=== PATIENT | female | born 1985 | race Caucasian/White ===

== ENCOUNTER 2016-11-14 17:28 | Inpatient (IN) ==
[2016-11-14] MEDS ORDERED: SALINE FLUSH 10ml SYRINGE IVF PRN (17:44)
[2016-11-14] MEDS ORDERED: ONDANSETRON 4 MG/2 ML INJECTION IVP ONE (17:45)
--- NOTE | 2016-11-14 17:49 | Emergency Department Report ---
Nausea/Vomiting/Diarrhea HPI - General Chief complaint: Nausea/Vomiting/Diarrhea Stated complaint: Not able to keep anything down Time Seen by Provider: 11/14/16 17:40 Source: patient Mode of arrival: ambulatory Limitations: no limitations - History of Present Illness HPI Narrative: Her 2 weeks ago. Since then she has been having trouble with nausea/vomiting. She is type 1 diabetic and does wear an insulin pump. She has vomited multiple times today. Is having some chest pain as well as generalized abdominal pain. Denies any diarrhea. Is having chills but no fever. Was evaluated in ER in [place] 2 days ago and sent home. Was also evaluated by her PCP and was given medications. MD complaint: nausea, vomiting Onset (ago): week(s) (2) Associated Abdominal Pain: Yes Location of pain: diffuse Severity: moderate Quality: cramping Consistency: constant Relieving factors: none Exacerbating factors: none Associated symptoms: chest pain, fever/chills (chills), loss of appetite, malaise, nausea/vomiting - Related Data Home Medications Medication Instructions Recorded Confirmed Furosemide [Lasix] 40 mg PO DAILY 11/14/16 11/14/16 Insulin Lispro [HumaLOG] 100 unit SQ PRN PRN 11/14/16 11/14/16 Lisinopril [Prinivil] 10 mg PO DAILY 11/14/16 11/14/16 Nature-Throid 1 tab PO DAILY 11/14/16 11/14/16 Promethazine HCl [Phenergan] 25 mg RECTALLY DAILY PRN 11/14/16 11/14/16 Promethazine Tab [Phenergan Tab] 25 mg PO Q8H PRN 11/14/16 11/14/16 Allergies Allergy/AdvReac Type Severity Reaction Status Date / Time clarithromycin [From Biaxin] Allergy Verified 11/14/16 17:48 latex Allergy Verified 11/14/16 17:48 Penicillins Allergy Verified 11/14/16 17:48 sulfamethoxazole Allergy Verified 11/14/16 17:48 [From Bactrim] trimethoprim [From Bactrim] Allergy Verified 11/14/16 17:48 Review of Systems Constitutional: Reports: chills. Denies: fever, weakness ENT: Denies: ear pain, throat pain, congestion Cardiovascular: Denies: chest pain, palpitations, dyspnea on exertion Respiratory: Denies: cough, dyspnea, wheezes Gastrointestinal: Reports: nausea, vomiting. Denies: abdominal pain, diarrhea Integumentary: Denies: rash Neurological: Denies: headache, weakness, numbness, paresthesias PFSH Patient Stated Medical History Other HEENT Yes: blindness R eye Congestive Heart Failure Yes Hypertension Yes Diabetes Mellitus Type 1 Yes Other Yes: possible lupus Type 1 diabetes Hashimotos thyroiditis - Social History Smoking status: Never smoker Substance use type: does not use Alcohol intake frequency: does not drink Physical Exam - Limitations Limitations: no limitations - General General appearance: alert, in no apparent distress - Normal Exams: ENMT:: No facial trauma, nasal exudates, pharyngeal erythema, or exudates are noted Neck:: Full range of motion, without adenopathy, JVD, bruits or thyromegaly Chest/Respirations:: Clear all menjivar, with good airflow, and symmetry bilaterally Integumentary:: No rashes, hives, or bruising noted Neurological:: Patient is alert, and oriented Psychiatric:: Patient exhibits, appropriate attention, emotion and affect - Cardiovascular Cardiovascular exam: Present: normal rhythm, tachycardia, normal heart sounds. Absent: regular rate, systolic murmur, diastolic murmur, rubs, gallop - Abdominal Exam Abdominal exam: Present: soft, tenderness (diffuse TTP, no guarding), normal bowel sounds. Absent: distention, guarding, rebound Course Vital Signs Temperature 99.3 F 11/14/16 17:30 Pulse Rate 103 H 11/14/16 17:30 Respiratory Rate 16 11/14/16 17:30 Blood Pressure 180/81 H 11/14/16 17:30 Pulse Oximetry 97 11/14/16 17:30 Temperature 99.6 F 11/14/16 21:44 Pulse Rate 94 11/14/16 21:44 Respiratory Rate 16 11/14/16 21:44 Blood Pressure 162/74 H 11/14/16 21:44 Pulse Oximetry 96 11/14/16 21:44 Nausea/Vomiting/Diarrhea - [facility] Narrative Medical decision making narrative: Patient has had one episode of vomiting while in ER. States that nausea is coming back. WBC is elevated at 17. CT scan shows possible infarct, trauma, or infection. Discussed findings with Dr Prather. He does recommend holding off on repeat CT until overread of this one in the morning. Would recommend having the overread forwarded to her PCP and they can set up outpatient scan. She states that she has no way to get back to [place] as she is staying with her mom so will no be able to follow up with the PCP. Did talk with Dr Romero. He will accept patient for admission given her elevated WBC, CT findings, vomiting, diabetes, and no close follow up. - Differential Diagnosis Likely: food poisoning, gastroenteritis, dehydration (DKA, AMI) - Lab Data Attestation: I reviewed the patient's lab results. Result diagrams: 11/14/16 18:01 11/14/16 18:01 Lab Results 11/14/16 11/14/16 11/14/16 Range/Units 18:01 18:01 18:02 WBC 17.2 H (4.5-11.0) T/MM3 RBC 4.84 (4.00-5.20) M/MM3 Hgb 14.0 (12-16) GM/DL Hct 43.4 (36-46) % MCV 89.7 (80-100) UM3 MCH 28.9 (26-34) UUG MCHC 32.3 (31-37) GM/DL RDW Std Deviation 41.6 (36.9-50.2) FL Plt Count 442 H (130-400) T/MM3 MPV 12.3 (9.4-12.4) UM3 Immature Gran % (Auto) Not performed Neut % (Auto) Not performed Lymph % (Auto) Not performed [place] % (Auto) Not performed Eos % (Auto) Not performed Baso % (Auto) Not performed Neut # Not performed Lymph # Not performed [place] # Not performed Baso # Not performed Abs Immat Gran (auto) Not performed Neutrophils % (Manual) 77.0 H (33-66) % Lymphocytes % (Manual) 16.0 L (23-45) % Monocytes % (Manual) 6.0 (0-9.0) % Basophils % (Manual) 1.0 (0-2) % Neutrophils # (Manual) 13.2 H (1.8-7.7) T/MM3 Lymphocytes # (Manual) 2.8 (1-4.8) T/MM3 Monocytes # (Manual) 1.0 H (0-0.8) T/MM3 Basophils # (Manual) 0.2 (0-0.2) T/MM3 RBC Morph Comment Normal Turbidity < 20 (0-20) Sodium 143 (134-144) MEQ/L Potassium 3.2 L (3.6-5) MEQ/L Chloride 97 L (98-107) MEQ/L Carbon Dioxide 33 H (22-30) MEQ/L Anion Gap 13 (5-15) MEQ/L BUN 14.0 (7-17) MG/DL Creatinine 0.8 (0.7-1.2) MG/DL GFR Calculation 84 BUN/Creatinine Ratio 18 (6-26) RATIO Glucose 302 H (65-110) MG/DL Glucometer 276 (65-110) mg/dL Calculated Osmolality 287 H (261-280) MOSM/KG Calcium 9.0 (8.4-10.2) MG/DL Icterus Index < 2 (0-7) Troponin I < 0.012 (0-0.12) ng/ml Specimen Hemolysis < 15 (0-25) Ur Collection Type Urine Color (YELLOW) Urine Clarity Urine pH (5.0-8.0) Ur Specific [place] (1.015-1.025) Urine Protein (NEGATIVE) Urine Glucose (UA) (NEGATIVE) Urine Ketones (NEGATIVE) Urine Occult Blood (NEGATIVE) Urine Nitrate (NEGATIVE) Urine Bilirubin (NEGATIVE) Urine Urobilinogen (NORMAL) EU/DL Ur Leukocyte Esterase (NEGATIVE) Urine RBC (0-3) /HPF Urine WBC (0-5) /HPF Ur Squamous Epith Cells Urine Bacteria (NEGATIVE) Ur Culture Indicated? Urine Test (Negative) 11/14/16 11/14/16 11/14/16 Range/Units 19:37 19:56 20:43 WBC (4.5-11.0) T/MM3 RBC (4.00-5.20) M/MM3 Hgb (12-16) GM/DL Hct (36-46) % MCV (80-100) UM3 MCH (26-34) UUG MCHC (31-37) GM/DL RDW Std Deviation (36.9-50.2) FL Plt Count (130-400) T/MM3 MPV (9.4-12.4) UM3 Immature Gran % (Auto) Neut % (Auto) Lymph % (Auto) [place] % (Auto) Eos % (Auto) Baso % (Auto) Neut # Lymph # [place] # Baso # Abs Immat Gran (auto) Neutrophils % (Manual) (33-66) % Lymphocytes % (Manual) (23-45) % Monocytes % (Manual) (0-9.0) % Basophils % (Manual) (0-2) % Neutrophils # (Manual) (1.8-7.7) T/MM3 Lymphocytes # (Manual) (1-4.8) T/MM3 Monocytes # (Manual) (0-0.8) T/MM3 Basophils # (Manual) (0-0.2) T/MM3 RBC Morph Comment Turbidity (0-20) Sodium (134-144) MEQ/L Potassium (3.6-5) MEQ/L Chloride (98-107) MEQ/L Carbon Dioxide (22-30) MEQ/L Anion Gap (5-15) MEQ/L BUN (7-17) MG/DL Creatinine (0.7-1.2) MG/DL GFR Calculation BUN/Creatinine Ratio (6-26) RATIO Glucose (65-110) MG/DL Glucometer 161 (65-110) mg/dL Calculated Osmolality (261-280) MOSM/KG Calcium (8.4-10.2) MG/DL Icterus Index (0-7) Troponin I (0-0.12) ng/ml Specimen Hemolysis (0-25) Ur Collection Type Urine, clean catch Urine Color Yellow (YELLOW) Urine Clarity Clear Urine pH 8.5 A (5.0-8.0) Ur Specific [place] 1.025 (1.015-1.025) Urine Protein 3+ A (NEGATIVE) Urine Glucose (UA) 3+ A (NEGATIVE) Urine Ketones 1+ A (NEGATIVE) Urine Occult Blood 2+ A (NEGATIVE) Urine Nitrate Negative (NEGATIVE) Urine Bilirubin Negative (NEGATIVE) Urine Urobilinogen 0.2 (NORMAL) EU/DL Ur Leukocyte Esterase Negative (NEGATIVE) Urine RBC 1-3 (0-3) /HPF Urine WBC 0-1 (0-5) /HPF Ur Squamous Epith Cells 0-5 Urine Bacteria None seen (NEGATIVE) Ur Culture Indicated? Cult not indicated Urine Test Negative (Negative) - Radiology Data Attestation: I reviewed the patient's radiology results. patchy hypoenhancement in the spleen which does not have the typical appearance of the differences in red/white pulp enhancement. Differential includes infarct , trauma, or infection. Recommend follow up CT scan of the abdomen with IV contrast, splenic protocol, with delayed images through the spleen, as clinically warrented. Disposition Clinical Impression: Nausea & vomiting Qualifiers: Vomiting type: unspecified Vomiting Intractability: non-intractable Qualified Code(s): R11.2 - Nausea with vomiting, unspecified Disposition: 02 To [facility] Condition: Stable Prescriptions: No Action Insulin Lispro [HumaLOG] 100 unit SQ PRN PRN PRN Reason: Prn Orders Lisinopril [Prinivil] 10 mg PO DAILY Promethazine HCl [Phenergan] 25 mg RECTALLY DAILY PRN PRN Reason: Nausea Nature-Throid 1 tab PO DAILY Furosemide [Lasix] 40 mg PO DAILY Promethazine Tab [Phenergan Tab] 25 mg PO Q8H PRN PRN Reason: Nausea Referrals: Vamshi Rosales MD [Family Provider] - Time of Disposition: 21:50 - Seen By: midlevel
[2016-11-14] MEDS: NS 1,000 ML IV SCH (18:02)
[2016-11-14] MEDS ORDERED: GI COCKTAIL 30 ML PO ONE (19:33)
[2016-11-14] MEDS ORDERED: IOHEXOL 300mg/ml 100ml INJECTION ONE (20:10)
[2016-11-14] MEDS ORDERED: SALINE FLUSH 10ml SYRINGE ONE (20:10)
[2016-11-14] MEDS ORDERED: NS 100 ML ONE (20:10)
[2016-11-14] MEDS ORDERED: FAMOTIDINE 20 MG TABLET PO ONE (20:58)
[2016-11-14] MEDS ORDERED: FAMOTIDINE 40 MG TABLET PO ONE (21:02)
[2016-11-14] MEDS ORDERED: PROCHLORPERAZINE 10 MG/2 ML VIAL IVP ONE (21:51)
[2016-11-14] MEDS ORDERED: PROMETHAZINE 25 MG TABLET PO PRN (21:55)
[2016-11-14] MEDS ORDERED: PROMETHAZINE 25 MG SUPPOSITORY PR PRN (21:55)
[2016-11-14] MEDS ORDERED: METOCLOPRAMIDE 10mg/2ml INJECTION IVP PRN (22:39)
[2016-11-14] MEDS ORDERED: LR 1,000 ML IV SCH (22:39)
[2016-11-14] MEDS ORDERED: ACETAMINOPHEN 325 MG TABLET PO PRN (22:39)
[2016-11-14] MEDS ORDERED: HYDROMORPHONE 2 MG/ML INJECTION IVP PRN (22:39)
[2016-11-14] MEDS ORDERED: INSULIN ASPART 100unit/ml INJECTION SQ PRN (22:39)
--- NOTE | 2016-11-14 23:26 | History & Physical Report ---
History of Present Illness Date: 11/14/16 Chief complaint: abd pain/chest pain and N/v HPI: very pleasant 31-year-old female presents to the emergency room with about 2 weeks worth of nausea, vomiting and chest and LUQ pain. she describes the pain as gradual onset with left upper quadrant burning type pain that radiates up to her chest and through to her back. she thinks is worse with inspiration, she did get some relief in the emergency room today with a gi cocktail though that was more from heartburn type pain and not necessarily the pain she's had. she was seen in the emergency room in [place] a couple weeks ago was provided symptomatic care and discharged with really no resolution or pain. had a CXR and some labs she says. she lives in [place] currently but because her unfortunately 2 weeks ago (i was told by the er that that was from a pulmonary embolism but i didn't discuss that with patient) so she is staying in [place] with her parents and part of her workup, ct abdomen shows some hypo-enhanced pattern in her spleen, including the differential diagnoses included a possible infarction, in discussion with surgery, the emergency room got the recommendation to wait for the over read in the morning before possibly repeating or doing other imaging. she has had some subjective fevers and chills and her temperature currently is 99.6. she has had nonbloody nonbilious emesis, she denies any diarrhea or black or bloody stools. she denies any dysuria she denies any cough productive of sputum. she currently denies any unilateral edema though she does have a history of congestive heart failure although she doesn't know what her ejection fraction is and she is never seen a vp respiratory. (She tells me she needs a referral to see CV but her Dr ?wouldn't give her one so she is looking for a new Dr) she denies any known history of dvt or clotting disorder, no family hx as such. 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[place]) Medications Home Medications Medication Instructions Recorded Confirmed Type Furosemide [Lasix] 40 mg PO DAILY 11/14/16 11/14/16 History Insulin Lispro [HumaLOG] 100 unit SQ PRN PRN 11/14/16 11/14/16 History Lisinopril [Prinivil] 10 mg PO DAILY 11/14/16 11/14/16 History Nature-Throid 1 tab PO DAILY 11/14/16 11/14/16 History Promethazine HCl [Phenergan] 25 mg RECTALLY DAILY PRN 11/14/16 11/14/16 History Promethazine Tab [Phenergan Tab] 25 mg PO Q8H PRN 11/14/16 11/14/16 History Allergies Allergy/AdvReac Type Severity Reaction Status Date / Time Penicillins Allergy Mild Hives Verified 11/14/16 23:04 clarithromycin [From Biaxin] Allergy Verified 11/14/16 17:48 latex Allergy Verified 11/14/16 17:48 sulfamethoxazole Allergy Verified 11/14/16 17:48 [From Bactrim] trimethoprim [From Bactrim] Allergy Verified 11/14/16 17:48 Exam Vital Signs: Temp Pulse Resp BP Pulse Ox 99.6 F 98 20 143/78 H 93 11/14/16 22:30 11/14/16 22:30 11/14/16 22:30 11/14/16 22:30 11/14/16 22:30 Height: 1.68 m Weight: 102.6 kg - Constitutional Present: no acute distress - Routine HEENT Exam Head: Present: normocephalic, atraumatic Eye: Present: EOMI, PERRL - Routine Respiratory Exam Present: CTA bilaterally. Absent: accessory muscle use, crackles - Routine Cardiovascular Exam Present: S1, S2, no murmur - Routine Abdominal Exam Present: soft, tenderness, non distended. Absent: rebound, rigid - Routine Extremities Exam Present: no edema - Routine Neurological Exam Present: alert, oriented X3, CN II-XII intact, moving all extremities, normal speech - Routine Psychiatric Exam Present: normal affect Results - Labs CBC & Chem 7: 11/14/16 18:01 11/14/16 18:01 - ECG Data Tracing #1 I reviewed this ECG and interpreted as documented below: diffuse ST wave inversion w/o depression, non specific - Imaging and Cardiology CT scan - abdomen Status: image reviewed by me Additional comments: reportedly with splenic hypodensities, formal interp pending, ?mass? Assessment and Plan (1) Splenic lesion Current visit: Yes Status: Acute nausea vomiting abdominal pain are probably related to this. we will give her a single dose of lovenox this evening. formal interpretation ct abdomen the morning, saturation 4 ct of the chest to rule out pulmonary embolism, perhaps to look for rule out other pathology. her slightly elevated temperature white blood cell count could be related to the infarct, it seems less likely this is an abscess etc. and i'm not giving antibiotics at this point we have drawn blood cultures. provide supportive care with iv opiates and anti-emetics. 11/14/16 23:36 (2) Congestive heart failure of unknown etiology Current visit: Yes Status: Acute 11/14/16 23:38 she didn't know really any details. we'll check an echocardiogram, see if we can assist her in getting a referral to a vp respiratory in [place] if needed, will be very much iv fluid, will turn down the rate to 50 cc an hour replace potassium. check a magnesium as well. (3) Diabetes mellitus type 1 Current visit: Yes Status: Acute 11/14/16 23:39 she currently has her insulin pump running, her last sugar was 128. nursing and i have agreed to allow her to use her insulin pump and manage this, she is probably due for an insulin pump site changed tomorrow. if her sugars become abnormally elevated or for whatever reason we need to stop her insulin pump and management manually will do so. (4) Grief reaction Current visit: Yes Status: Acute 11/14/16 23:40 with of her 2 weeks prior, will continue to monitor (5) Insulin pump in place Current visit: Yes Status: Acute (6) Abdominal pain, left upper quadrant Current visit: Yes Status: Acute (7) Heartburn Current visit: Yes Status: Acute 11/14/16 23:41 PPI and PRN heartburn meds Sepsis Assessment - Focused Exam Vital Signs Temp Pulse Resp BP Pulse Ox 11/14/16 22:30 99.6 F 98 20 143/78 H 93 11/14/16 22:21 99.6 F 98 20 162/74 H 93 11/14/16 21:44 99.6 F 94 16 162/74 H 96 11/14/16 20:40 96 16 165/73 H 96 11/14/16 19:43 98 16 177/78 H 97 11/14/16 18:30 95 180/82 H 99 11/14/16 18:15 99 16 169/73 H 97 11/14/16 17:30 99.3 F 103 H 16 180/81 H 97 Hospital Course Summary Disclaimer: The visit summary below is not to be considered part of the above Progress Note.
[2016-11-14] MEDS: HYDROCODONE/APAP 5mg/325mg TABLET PO PRN (23:41)
[2016-11-15] MEDS ORDERED: ENOXAPARIN 100 MG/ML INJECTION SQ ONE ×2 (00:29→23:53)
[2016-11-15] MEDS ORDERED: INSULIN PUMP MC SCH (00:30)
[2016-11-15] MEDS ORDERED: ZOLPIDEM 5 MG TABLET PO PRN (00:30)
[2016-11-15] MEDS: LR 1,000 ML IV SCH ×2 (00:47→17:00)
--- NOTE | 2016-11-15 07:57 | CT Scan Report ---
Indication: abdominal pain for two weeks PROCEDURE: CT abdomen pelvis w con: Encounter: Initial Comparison: None Technique: Axial CT images were performed through the abdomen and pelvis after the administration of intravenous contrast. Coronal and sagittal two-dimensional reformats. Automated Exposure Control and Iterative Reconstruction dose reducing techniques were utilized. Contrast: Omnipaque 300 99 mL Findings: The lung bases are clear. The liver, gallbladder, pancreas and adrenal glands are within normal limits. Kidneys are normal. There is abnormal peripheral wedge-shaped low attenuation in the superior and anterior aspect of the spleen. The splenic vein appears patent. Splenic artery is not well seen on this phase of contrast. No abdominal or pelvic adenopathy. Bladder is unremarkable. Uterus and ovaries appear normal. No free fluid. No evidence of a bowel obstruction. The appendix is normal. Bone windows show no acute findings. Impression: Splenic abnormality probably representing a splenic infarct. There is a preliminary report by [facility]. .
--- NOTE | 2016-11-15 07:57 | XRay Report ---
Indication: chest pain with nausea and vomiting for two weeks PROCEDURE: XR chest 1V: Encounter: Initial Comparison: None FINDINGS: The lungs are clear. There is no abnormal airspace opacity, pleural effusion or pneumothorax identified. The heart size, pulmonary vasculature and mediastinum are within normal limits. No significant skeletal abnormality is seen. IMPRESSION: No acute cardiopulmonary abnormality. .
[2016-11-15] MEDS ORDERED: POTASSIUM CHLORIDE 20 MEQ/15 ML ORAL LIQUID PO SCH (08:00)
--- NOTE | 2016-11-15 09:36 | Progress Note ---
Subjective: Pt reports she is feeling better this am as her abd pain is a bit improved and she is able to keep food down. Reports constant/chronic cp. Reports she has been told she has "fluid around the heart" and possibly CHF but has never seen a paperboard boxes estimator or had any work up done. No stress test done. 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 Objective Vital signs: Temp Pulse Resp BP Pulse Ox 97.6 F 78 16 140/69 H 95 11/15/16 09:10 11/15/16 09:10 11/15/16 09:10 11/15/16 09:10 11/15/16 09:10 Rhythm: Normal Sinus Rhythm Weight: 104.5 kg - Constitutional Present: no acute distress, well nourished - Routine HEENT Exam Head: Present: atraumatic Eye: Present: EOMI ENT: Present: mucous membranes moist - Routine Respiratory Exam Present: CTA bilaterally. Absent: wheezes - Routine Cardiovascular Exam Present: RRR, no murmur - Routine Abdominal Exam Present: soft, tenderness, non distended Comments: mild luq tenderness - Routine Extremities Exam Absent: cyanosis, clubbing, edema - Routine Skin Exam Present: intact, dry, warm - Routine Neurological Exam Present: alert, oriented X3 Results - Labs CBC & Chem 7: 11/15/16 02:18 11/15/16 02:18 Assessment and Plan (1) Splenic lesion Current visit: Yes Status: Acute nausea vomiting abdominal pain are probably related to this. we will give her a single dose of lovenox this evening. formal interpretation ct abdomen the morning, saturation 4 ct of the chest to rule out pulmonary embolism, perhaps to look for rule out other pathology. her slightly elevated temperature white blood cell count could be related to the infarct, it seems less likely this is an abscess etc. and i'm not giving antibiotics at this point we have drawn blood cultures. provide supportive care with iv opiates and anti-emetics. 11/14/16 23:36 (2) Congestive heart failure of unknown etiology Current visit: Yes Status: Acute 11/14/16 23:38 she didn't know really any details. we'll check an echocardiogram, see if we can assist her in getting a referral to a paperboard boxes estimator in [place] if needed, will be very much iv fluid, will turn down the rate to 50 cc an hour replace potassium. check a magnesium as well. (3) Diabetes mellitus type 1 Current visit: Yes Status: Acute 11/14/16 23:39 she currently has her insulin pump running, her last sugar was 128. nursing and i have agreed to allow her to use her insulin pump and manage this, she is probably due for an insulin pump site changed tomorrow. if her sugars become abnormally elevated or for whatever reason we need to stop her insulin pump and management manually will do so. (4) Grief reaction Current visit: Yes Status: Acute 11/14/16 23:40 with of her 2 weeks prior, will continue to monitor (5) Insulin pump in place Current visit: Yes Status: Acute (6) Abdominal pain, left upper quadrant Current visit: Yes Status: Acute (7) Heartburn Current visit: Yes Status: Acute 11/14/16 23:41 PPI and PRN heartburn meds Assessment and Plan: Splenic Hypoenhancement -Wedge shaped on CT, likely infarct -TTE pending to look for thrombus/vegetation -Hx of hashimotos, type I DM, and had multiple miscarriages-->concern for APL, will do work up -APL Work up-->Order aCL ab, aBG2P ab, LA -Will also order RHETT, RF, INR/PTT -ECG -Supportive pain management Type I DM with proteinuria -Cont. home insulin pump -Likely has kidney damage-->Urine showing protein, glucose -On lisinopril but holding d/t contrast given overnight -Order A1c Hypokalemia -Likely 2/2 poor intake and n/v -Replace, monitor Leukocytosis -Likely 2/2 splenic infarct -No other source of infection suspected, blood cx's drawn -Cont to monitor Hypothyroid -Cont. home armour thyroid -Check TSH HTN -On lisinopril 10mg, holding d/t CT with contrast overnight Ppx -DVT-Lovenox Sepsis Assessment - Evaluation Sepsis screening result: No Definite Risk - Focused Exam Vital Signs Temp Pulse Resp BP Pulse Ox 11/15/16 09:10 97.6 F 78 16 140/69 H 95 11/14/16 22:30 99.6 F 98 20 143/78 H 93 Respiratory exam: Present: CTA bilaterally. Absent: accessory muscle use, crackles Cardiovascular exam: Present: S1, S2, no murmur Hospital Course Summary Disclaimer: The visit summary below is not to be considered part of the above Progress Note. Hospital Course: 11/15/16 10:14 Pt comes in with likely splenic infarct, awaiting CT over-read this am, will need work up for underlying etiology. Sx's of n/v, abd pain improved this am. Will cont. to monitor.
[2016-11-15] MEDS ORDERED: NATURE THROID PO SCH (10:00)
[2016-11-15] MEDS: HYDROCODONE/APAP 5mg/325mg TABLET PO PRN (10:21)
[2016-11-15] MEDS: NS 1,000 ML IV SCH ×3 (11:45→11:49)
[2016-11-15] MEDS: ONDANSETRON 4 MG/2 ML INJECTION IVP PRN ×2 (13:18→16:57)
[2016-11-15] MEDS: OMEPRAZOLE 20 MG CAPSULE PO SCH (15:57)
--- NOTE | 2016-11-15 18:08 | Echocardiogram ---
DATE OF PROCEDURE 11/15/2016 REFERRING PHYSICIAN Nazario Downey MD INDICATIONS This is a two-dimensional echo with spectral Doppler, color-flow, and M-mode. It was obtained in a patient with chest pain and congestive heart failure. DESCRIPTION OF PROCEDURE Left atrial dimension is normal. Left ventricular end-diastolic dimension is normal. Left ventricular wall thickness is at the upper limits of normal. LV systolic function is normal with ejection fraction of 68%. Right atrium is normal. Right ventricle is normal. Aortic root dimension is normal. Mitral valve is morphologically normal with trace of mitral regurgitation. Aortic valve appears to be normal. Tricuspid valve shows mild tricuspid regurgitation with normal estimated pulmonary artery systolic pressure of 20. Pulmonary valve shows trace of pulmonary insufficiency. There is trace of pericardial effusion with no echocardiographic evidence of tamponade. IMPRESSION 1. Normal LV systolic function with ejection fraction of 68%. 2. Trace of pericardial effusion with no echocardiographic evidence of tamponade. 3. Trace of mitral regurgitation. 4. Mild tricuspid regurgitation with normal estimated pulmonary artery systolic pressure of 20. 5. Trace of pulmonary insufficiency. [facility]
[2016-11-15] MEDS: METOCLOPRAMIDE 10mg/2ml INJECTION IVP PRN (21:09)
[2016-11-16] MEDS: METOCLOPRAMIDE 10mg/2ml INJECTION IVP PRN ×2 (03:22→13:45)
[2016-11-16] MEDS: OMEPRAZOLE 20 MG CAPSULE PO SCH (05:46)
[2016-11-16] MEDS: ENOXAPARIN 40 MG/0.4 ML INJECTION SQ SCH (09:33)
[2016-11-16] MEDS ORDERED: SALINE FLUSH 10ml SYRINGE IV PRN (09:53)
[2016-11-16] MEDS: LR 1,000 ML IV SCH ×2 (10:39→16:45)
--- NOTE | 2016-11-16 12:36 | Progress Note ---
Subjective: Pt had some n/v last evening but doing better this am. Reports abdominal pain is improved but still present. Denies any cp, sob. Objective Vital signs: Temp Pulse Resp BP Pulse Ox 98.5 F 82 20 168/70 H 95 11/16/16 11:00 11/16/16 11:00 11/16/16 11:00 11/16/16 11:00 11/16/16 11:00 Weight: 104.5 kg - Constitutional Present: no acute distress, well nourished - Routine HEENT Exam Head: Present: normocephalic, atraumatic Eye: Present: EOMI ENT: Present: mucous membranes moist - Routine Respiratory Exam Present: CTA bilaterally. Absent: wheezes - Routine Cardiovascular Exam Present: RRR, no murmur - Routine Abdominal Exam Present: soft, tenderness, non distended Comments: mild diffuse tenderness - Routine Extremities Exam Present: edema. Absent: cyanosis, clubbing - Routine Skin Exam Present: intact, dry, warm - Routine Neurological Exam Present: alert, oriented X3 Results - Labs CBC & Chem 7: 11/16/16 05:01 11/16/16 05:01 Assessment and Plan (1) Splenic lesion Current visit: Yes Status: Acute nausea vomiting abdominal pain are probably related to this. we will give her a single dose of lovenox this evening. formal interpretation ct abdomen the morning, saturation 4 ct of the chest to rule out pulmonary embolism, perhaps to look for rule out other pathology. her slightly elevated temperature white blood cell count could be related to the infarct, it seems less likely this is an abscess etc. and i'm not giving antibiotics at this point we have drawn blood cultures. provide supportive care with iv opiates and anti-emetics. 11/14/16 23:36 (2) Diabetes mellitus type 1 Current visit: Yes Status: Acute 11/14/16 23:39 she currently has her insulin pump running, her last sugar was 128. nursing and i have agreed to allow her to use her insulin pump and manage this, she is probably due for an insulin pump site changed tomorrow. if her sugars become abnormally elevated or for whatever reason we need to stop her insulin pump and management manually will do so. (3) Grief reaction Current visit: Yes Status: Acute 11/14/16 23:40 with of her 2 weeks prior, will continue to monitor (4) Insulin pump in place Current visit: Yes Status: Acute (5) Abdominal pain, left upper quadrant Current visit: Yes Status: Acute (6) Heartburn Current visit: Yes Status: Acute 11/14/16 23:41 PPI and PRN heartburn meds Assessment and Plan: Splenic Hypoenhancement -Wedge shaped on CT, likely infarct -TTE only remarkable for trace pericardial effusion, EF 68% -Hx of hashimotos, type I DM, and had multiple miscarriages-->concern for APL, will do work up -APL Work up pending-->aCL ab, aBG2P ab, LA -RHETT & RF negative, INR/PTT wnls -Supportive tx Type I DM with proteinuria -Cont. home insulin pump -Likely has kidney damage-->Urine showing protein, glucose -On lisinopril but holding d/t contrast given overnight -A1c 8.6, pt has had a couple of low sugars, she reports she is managing it and knows to monitor for low sugars Hypokalemia -Likely 2/2 poor intake and n/v -Replace, monitor Leukocytosis -Likely 2/2 splenic infarct, improving -No other source of infection suspected, blood cx's NGTD, procal negative -Cont to monitor Hypothyroid -Cont. home armour thyroid -TSH wnls HTN -On lisinopril 10mg, holding d/t CT with contrast overnight -Plan to start tomorrow Ppx -DVT-Lovenox Sepsis Assessment - Evaluation Sepsis screening result: No Definite Risk Hospital Course Summary Disclaimer: The visit summary below is not to be considered part of the above Progress Note. Hospital Course: 11/15/16 10:14 Pt comes in with likely splenic infarct, awaiting CT over-read this am, will need work up for underlying etiology. Sx's of n/v, abd pain improved this am. Will cont. to monitor.
[2016-11-16] MEDS: LORazepam 1 MG TABLET PO PRN (12:43)
[2016-11-17] MEDS: METOCLOPRAMIDE 10mg/2ml INJECTION IVP PRN (00:30)
[2016-11-17] MEDS: LORazepam 1 MG TABLET PO PRN ×2 (00:31→22:45)
[2016-11-17] MEDS: HYDROCODONE/APAP 5mg/325mg TABLET PO PRN ×3 (00:31→22:45)
[2016-11-17] MEDS: OMEPRAZOLE 20 MG CAPSULE PO SCH (06:15)
[2016-11-17] MEDS: ENOXAPARIN 40 MG/0.4 ML INJECTION SQ SCH (09:34)
[2016-11-17] MEDS: LISINOPRIL 10 MG TABLET PO SCH (09:35)
--- NOTE | 2016-11-17 14:12 | Progress Note ---
Subjective: Pt reports she feels better this am, n/v has improved. Abdominal pain is still present. Pt continues to have hypoglycemic episodes overnight. Objective Vital signs: Temp Pulse Resp BP Pulse Ox 97.1 F 80 28 H 139/82 97 11/17/16 08:00 11/17/16 08:00 11/17/16 08:00 11/17/16 08:00 11/17/16 08:00 Weight: 105.8 kg - Constitutional Present: no acute distress, well nourished - Routine HEENT Exam Head: Present: atraumatic Eye: Present: EOMI - Routine Respiratory Exam Present: CTA bilaterally. Absent: wheezes - Routine Cardiovascular Exam Present: RRR, no murmur - Routine Abdominal Exam Present: soft, tenderness, non distended Comments: mild left sided abdominal pain - Routine Extremities Exam Present: edema. Absent: cyanosis, clubbing - Routine Skin Exam Present: intact, dry, warm - Routine Neurological Exam Present: alert, oriented X3 Results - Labs CBC & Chem 7: 11/16/16 05:01 11/17/16 09:01 Assessment and Plan (1) Splenic lesion Current visit: Yes Status: Acute nausea vomiting abdominal pain are probably related to this. we will give her a single dose of lovenox this evening. formal interpretation ct abdomen the morning, saturation 4 ct of the chest to rule out pulmonary embolism, perhaps to look for rule out other pathology. her slightly elevated temperature white blood cell count could be related to the infarct, it seems less likely this is an abscess etc. and i'm not giving antibiotics at this point we have drawn blood cultures. provide supportive care with iv opiates and anti-emetics. 11/14/16 23:36 (2) Diabetes mellitus type 1 Current visit: Yes Status: Acute 11/14/16 23:39 she currently has her insulin pump running, her last sugar was 128. nursing and i have agreed to allow her to use her insulin pump and manage this, she is probably due for an insulin pump site changed tomorrow. if her sugars become abnormally elevated or for whatever reason we need to stop her insulin pump and management manually will do so. (3) Grief reaction Current visit: Yes Status: Acute 11/14/16 23:40 with of her 2 weeks prior, will continue to monitor (4) Insulin pump in place Current visit: Yes Status: Acute (5) Abdominal pain, left upper quadrant Current visit: Yes Status: Acute (6) Heartburn Current visit: Yes Status: Acute 11/14/16 23:41 PPI and PRN heartburn meds Assessment and Plan: Splenic Hypoenhancement -Wedge shaped on CT, likely infarct -TTE only remarkable for trace pericardial effusion, EF 68%, nothing remarkable on tele or ECG -Hx of hashimotos, type I DM, and had multiple miscarriages-->concern for APL, will do work up -APL Work up pending-->aCL ab, aBG2P ab, [place] -RHETT & RF negative, INR/PTT wnls -Supportive tx Type I DM with proteinuria -Cont. home insulin pump -Pt continues to have hypoglycemic episodes overnight, will reduce basal rate at night and monitor -Likely has kidney damage-->Urine showing protein, glucose -On lisinopril but holding d/t contrast given overnight -A1c 8.6, consulted for further recs Hypokalemia -Likely 2/2 poor intake and n/v -Replace, monitor Leukocytosis -Likely 2/2 splenic infarct, improving -No other source of infection suspected, blood cx's NGTD, procal negative -Cont to monitor Hypothyroid -Cont. home armour thyroid -TSH wnls HTN -On lisinopril 10mg, holding d/t CT with contrast overnight -Plan to start today Ppx -DVT-Lovenox Sepsis Assessment - Evaluation Sepsis screening result: No Definite Risk Hospital Course Summary Disclaimer: The visit summary below is not to be considered part of the above Progress Note. Hospital Course: 11/15/16 10:14 Pt comes in with likely splenic infarct, awaiting CT over-read this am, will need work up for underlying etiology. Sx's of n/v, abd pain improved this am. Will cont. to monitor. 11/17/16 14:12 Pt improving, awaiting APL work up, if negative then can cont. further work up for splenic infarct as outpatient. Pt continues to have hypoglycemic episodes overnight, will reduce basal rate overnight and monitor. Consulted , telephone supervisor.
[2016-11-18] MEDS: OMEPRAZOLE 20 MG CAPSULE PO SCH (06:30)
[2016-11-18] MEDS: LISINOPRIL 10 MG TABLET PO SCH (09:13)
[2016-11-18] MEDS: ENOXAPARIN 40 MG/0.4 ML INJECTION SQ SCH (09:13)
--- NOTE | 2016-11-18 10:48 | Consultation ---
DATE OF CONSULT 11/18/2016 REASON FOR CONSULTATION Diabetes control with insulin. HISTORY OF PRESENT ILLNESS The patient presented to the emergency room in [place] about 10 days prior to admission. She has experienced about two weeks of nausea, vomiting and left upper quadrant pain that radiates through to her back and is worse with inspiration. The pain persisted, so she presented to the emergency room at [facility] on 11/14/2016 and was admitted. She has a 29-year history of type 1 diabetes mellitus and has used an insulin pump for about the last 15 years. At one time, she used a continuous glucose monitoring sensor but found it to be too cumbersome, so she gave up on it. 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 She also has had years of diabetic nephropathy and has an appointment to see Dr. Mckenna (?) for further evaluation. She has just mild peripheral neuropathy in her feet. 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 Yesterday I spoke with the hospitalist, Dr. Solis, and we reprogrammed her pump to deliver 10% less basal insulin overnight. Her pump program is now a basal rate of 2.20 starting at midnight, 2.40 at noon 2.35 at 5:00 p.m. and 2.45 at 9:00 p.m. Her carb ratios are 3 starting at midnight and remains the same throughout the entire 24 hours. Insulin sensitivity is 18. It is noted that the settings she was on at the time of admission were the same as the ones when I had last seen her on 08/29/2014. Her diabetes care has been with Dr. Rosales her PCP. Her hemoglobin A1c has usually been greater than 8.0. PAST MEDICAL HISTORY As mentioned above, plus hypertension and Orquidea's thyroiditis causing hypothyroidism for which she is taking 50 mg of Nature-Throid daily. She reports frequent changes being necessary in the dose of her thyroid hormone supplementation and wonders if she should be taking something different. Her last dose change was several months ago. FAMILY HISTORY Remarkable for hypothyroidism in her mother. Otherwise noncontributory. SOCIAL HISTORY The patient does not smoke tobacco nor drink alcohol. She was but her suddenly two weeks ago. 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 CURRENT MEDICATIONS Per EMR. She is notably not on a statin drug. PHYSICAL EXAMINATION VITAL SIGNS: Afebrile. Pulse 87. Respirations 17. Blood pressure 128/66. GENERAL: Well-developed, well-nourished obese female, alert, oriented and in no acute distress. HEENT: Head is atraumatic, normocephalic. Eyes: Right ptosis with disconjugate gaze. NECK: Without thyromegaly or bruits. LUNGS: Clear. HEART: Regular rate and rhythm. ABDOMEN: Normal bowel sounds with left upper quadrant tenderness. No rebound. EXTREMITIES: Without cyanosis or edema. PSYCHIATRIC: Normal affect. Normal speech pattern. LABS Hemoglobin A1c 8.6%. Calcium 8.3. Fasting glucose this morning 153. Review of glucometer results shows the pattern of dipping into the 50s and 60s in the wooden furniture polisher hours and rebounding above 240 towards noon until last night with the new basal insulin infusion showing no hypoglycemia at all. TSH has not been done. ASSESSMENT 1. Type 1 diabetes mellitus with hyperglycemia. The patient will require less insulin overnight which will hopefully eliminate some of the rebound hyperglycemia midday as well. 2. Long-term use of insulin. 3. Presence of insulin pump. 4. Hypothyroidism. This appears to be better controlled now as her TSH was found and is 3.17 on the new dose of Nature-Throid. 5. Diabetic retinopathy with blindness in right eye. 6. Diabetic nephropathy, due to see wall taper. 7. Peripheral neuropathy, mild. 8. Obesity. 9. Splenic infarct, deferred to hospitalist. RECOMMENDATIONS Await glucose readings midday today to see whether adjustment is needed for the late morning insulin delivery. Otherwise continue current pump program which seems to be yielding smoother control than before. I did discuss the use of levothyroxine instead of the natural desiccated thyroid as a means of perhaps requiring less frequent dose adjustments in the future. However, her TSH is okay now, so no adjustment is recommended at this time. Thank you very much for asking my assistance in caring for this nice lady. I will follow her along with you while she remains in the hospital. CHARITO
--- NOTE | 2016-11-18 13:38 | Discharge Summary ---
Discharge Information Date of admission: 11/17/16 09:49 Anticipated date of discharge: 11/18/16 Attending Physician: Nazario Downey MD Primary care physician: Vamshi Rosales MD Consults: 11/17/16 12:59 Physician Consult [CONS] Routine Consulting Provider: Garland Hart Reason For Exam: diabetes Ordering Provider has Notified Waistband Setter: Yes - Discharge Diagnosis (1) Splenic lesion Status: Acute (2) Diabetes mellitus type 1 Status: Acute (3) Grief reaction Status: Acute (4) Insulin pump in place Status: Acute (5) Abdominal pain, left upper quadrant Status: Acute (6) Heartburn Status: Acute - Laboratory Labs: 11/18/16 04:55 11/18/16 04:55 History of Present Illness HPI: very pleasant 31-year-old female presents to the emergency room with about 2 weeks worth of nausea, vomiting and chest and LUQ pain. she describes the pain as gradual onset with left upper quadrant burning type pain that radiates up to her chest and through to her back. she thinks is worse with inspiration, she did get some relief in the emergency room today with a gi cocktail though that was more from heartburn type pain and not necessarily the pain she's had. she was seen in the emergency room in [place] a couple weeks ago was provided symptomatic care and discharged with really no resolution or pain. had a CXR and some labs she says. she lives in [place] currently but because her unfortunately 2 weeks ago (i was told by the er that that was from a pulmonary embolism but i didn't discuss that with patient) so she is staying in [place] with her parents and part of her workup, ct abdomen shows some hypo-enhanced pattern in her spleen, including the differential diagnoses included a possible infarction, in discussion with surgery, the emergency room got the recommendation to wait for the over read in the morning before possibly repeating or doing other imaging. she has had some subjective fevers and chills and her temperature currently is 99.6. she has had nonbloody nonbilious emesis, she denies any diarrhea or black or bloody stools. she denies any dysuria she denies any cough productive of sputum. she currently denies any unilateral edema though she does have a history of congestive heart failure although she doesn't know what her ejection fraction is and she is never seen a quality control specialist. (She tells me she needs a referral to see CV but her Dr ?wouldn't give her one so she is looking for a new Dr) she denies any known history of dvt or clotting disorder, no family hx as such. Hospital Course Hospital course: Brief Summary Pt came in to the hospital with n/v, abdominal pain and fevers. Pt was found to have wedge shaped hypoenhancement lesions in the spleen which were likely splenic infacts. Pt improved with supportive tx and all her sx's improved. Work up was done for APL but was negative. TTE was unremarkable as well. RHETT and RF was negative as well. INR/PTT were unremarkable as well. No clear etiology was found for her infarcts and so pt was discharged to go home with f/u with pcp and at that time she could continue further work up for other possible etiologies. Pt also had some hypoglycemic episodes while in the hospital mostly at night. She was likely experiencing sd phenomenon and her basal rate was adjusted from 2.5 to 2.2 overnight and she did much better. , her senior energy analyst, was consulted and he saw the pt in the hospital and recommended she f/u with him in his office. Pt did well on day of discharge and was instructed to not take any OCPs until further discussion with her PCP. Recommend close f/u with senior energy analyst and PCP in the next 1-2 weeks. Daily Summary 11/15/16 10:14 Pt comes in with likely splenic infarct, awaiting CT over-read this am, will need work up for underlying etiology. Sx's of n/v, abd pain improved this am. Will cont. to monitor. 11/17/16 14:12 Pt improving, awaiting APL work up, if negative then can cont. further work up for splenic infarct as outpatient. Pt continues to have hypoglycemic episodes overnight, will reduce basal rate overnight and monitor. Consulted , senior energy analyst. Discharge Plan - Med Rec/Dispo Referrals/Follow Up: Garland Hart MD [Physician] - Vamshi Rosales MD [Family Provider] - Kristel Instructions: Acute Nausea and Vomiting (GEN) Prescriptions: Continue Insulin Lispro [HumaLOG] 100 unit SQ PRN PRN PRN Reason: Prn Orders Lisinopril [Prinivil] 10 mg PO DAILY Promethazine HCl [Phenergan] 25 mg RECTALLY DAILY PRN PRN Reason: Nausea Nature-Throid 1 tab PO DAILY Furosemide [Lasix] 40 mg PO DAILY Promethazine Tab [Phenergan Tab] 25 mg PO Q8H PRN PRN Reason: Nausea Discharge Instructions/Outpatient Orders: Final Provider Discharge Instructions Location: Determined By Patient - Disposition 01 Discharged Home, Self-Care
== END 2016-11-18 14:50 | disposition home or self-care (01) | DRG 816 ==
LOC: ED 17:28 → MED 17:28
PROVIDERS: ADMIT Pediatrics; ATTEND Hospitalist